=== PATIENT | female | born 1965 | race Caucasian/White ===

== ENCOUNTER → 2016-11-01 | Outpatient (CLI) | payer OTHER ==
[2016-11-01 09:51] LABS: BLOOD UREA NITROGEN 19 mg/dL (7-18)
[2016-11-01 10:04] LABS: ASPARTATE AMINO TRANSFERASE 10 U/L (15-37)
[2016-11-02 11:06] LABS: CREATININE URINE 67.2 mg/dL (Not Estab.)
== END | disposition home or self-care (01) ==
LOC: LAB 09:10
PROVIDERS: ATTEND Family Medicine
DX: E03.9 Hypothyroidism, unspecified (principal); E11.9 Type 2 diabetes mellitus without complications; E78.5 Hyperlipidemia, unspecified; N95.1 Menopausal and female climacteric states
CPT/HCPCS: 36415; 80053; 80061; 82043; 82570; 82670; 83001; 83002; 83036; 84436; 84443; 84481; 85025

== ENCOUNTER 2017-01-23 20:46 | Emergency (ER) | payer OTHER ==
[~2017-01-23] VITALS: Ht 162.6 cm; Wt 99.5 kg
[2017-01-23] MEDS ORDERED: ONDANSETRON 2MG/ML, 2ML IVPush ONE (21:30)
[2017-01-23] MEDS ORDERED: SODIUM CHLORIDE 0.9% 1,000ML IVBOLUS ONE (21:30)
[2017-01-23] MEDS ORDERED: ONDANSETRON 2MG/ML, 2ML ONE (21:40)
[2017-01-23 21:50] LABS: PH, VENOUS 7.402 pH (7.320-7.420)
[2017-01-23 21:53] LABS: HEMATOCRIT 39.8 % (34.6-47.8); HEMOGLOBIN 12.9 g/dL (11.7-16.4); WHITE BLOOD COUNT 6.1 x10^3/uL (3.4-10)
[2017-01-23 21:57] LABS: PATH.CAST-FLAG NOT PRESENT; SPERM-FLAG NOT PRESENT; SRC-FLAG NOT PRESENT; XTAL-FLAG NOT PRESENT; YLC-FLAG NOT PRESENT
[2017-01-23 22:05] LABS: ASPARTATE AMINO TRANSFERASE 9 U/L (15-37); BLOOD UREA NITROGEN 11 mg/dL (7-18)
[2017-01-23 22:12] LABS: IS PT STATUS REG ER OR PRE ER? YES
[2017-01-23 22:55] VITALS: BP 150/85
== END 2017-01-23 22:58 | disposition home or self-care (01) ==
LOC: ED 22:52
DX: E11.65 Type 2 diabetes mellitus with hyperglycemia (principal); L03.115 Cellulitis of right lower limb; L03.116 Cellulitis of left lower limb; I10 Essential (primary) hypertension; E78.00 Pure hypercholesterolemia, unspecified
CPT/HCPCS: 36415; 80053; 81001; 82010; 82803; 82962; 83690; 84484; 85025; 93005; 96361; 96374; 99285; J2405; J7030

== ENCOUNTER → 2017-01-23 | Outpatient (CLI) | payer OTHER | END | disposition home or self-care (01) | LOC: CFH 07:52 | PROVIDERS: ATTEND Orthopaedic Surgery Sports Medicine | DX: M71.22 Synovial cyst of popliteal space [Baker], left knee (principal); M25.462 Effusion, left knee; M25.762 Osteophyte, left knee; M94.262 Chondromalacia, left knee; M17.12 Unilateral primary osteoarthritis, left knee; M65.862 Other synovitis and tenosynovitis, left lower leg ==

== ENCOUNTER → 2017-01-26 | Outpatient (CLI) | payer OTHER ==
[2017-01-26 07:35] LABS: ASPARTATE AMINO TRANSFERASE 11 U/L (15-37); BLOOD UREA NITROGEN 16 mg/dL (7-18)
== END | disposition home or self-care (01) ==
LOC: LAB 07:08
PROVIDERS: ATTEND Family Medicine
DX: E11.9 Type 2 diabetes mellitus without complications (principal); E78.5 Hyperlipidemia, unspecified
CPT/HCPCS: 36415; 80053; 80061; 83036

== ENCOUNTER → 2017-02-02 | Outpatient (CLI) | payer OTHER | END | disposition home or self-care (01) | LOC: CFH 14:41 | PROVIDERS: ATTEND Family Medicine | DX: M79.89 Other specified soft tissue disorders (principal) ==

== ENCOUNTER → 2017-03-13 | Outpatient (CLI) | payer OTHER | END | disposition home or self-care (01) | LOC: CFH 15:44 | PROVIDERS: ATTEND Family Medicine | DX: Z12.31 Encounter for screening mammogram for malignant neoplasm of breast (principal) | CPT/HCPCS: 77063; G0202 ==

== ENCOUNTER 2017-05-26 20:42 | Emergency (ER) | payer OTHER ==
[~2017-05-26] VITALS: Ht 162.6 cm; Wt 97.9 kg
[2017-05-26 20:44] VITALS: BP 164/93
[2017-05-26] MEDS ORDERED: ACETAMINOPHEN 325 MG TABLET ONE (21:14)
[2017-05-26] MEDS ORDERED: ACETAMINOPHEN 325 MG TABLET PO ONE (21:30)
== END 2017-05-26 21:50 | disposition home or self-care (01) ==
LOC: ED 21:44
DX: S60.221A Contusion of right hand, initial encounter (principal); E11.9 Type 2 diabetes mellitus without complications; W01.0XXA Fall on same level from slipping, tripping and stumbling without subsequent striking against object, initial encounter; Y93.89 Activity, other specified; Y99.8 Other external cause status; Y92.009 Unspecified place in unspecified non-institutional (private) residence as the place of occurrence of the external cause
CPT/HCPCS: 99284

== ENCOUNTER → 2017-06-06 | Outpatient (CLI) | payer OTHER ==
[~2017-06-06] MED LIST: ATOR40TA78 PO; ESTR0.5T PO; EZET10TA18 PO; FENO145T32 PO; LEVO150T PO; METF500T9 PO
[2017-06-06 15:44] LABS: BASOPHILS # (AUTO) 0.05 x10^3/uL (0-0.1); BASOPHILS % (AUTO) 1 % (0-1); EOSINOPHILS # (AUTO) 0.09 x10^3/uL (0-0.4); EOSINOPHILS % (AUTO) 2 % (1-7); LYMPHOCYTES # (AUTO) 1.61 x10^3/uL (1-3.4); LYMPHOCYTES % (AUTO) 26 % (22-44); MD NO; MEAN CORPUSCULAR HEMOGLOBIN 29.6 pg (27.0-34.8); MEAN CORPUSCULAR HGB CONC 33.3 g/dL (32.4-35.8); MEAN CORPUSCULAR VOLUME 88.9 fL (80-100); MEAN PLATELET VOLUME 8.4 fL (7.4-10.4); MONOCYTES # (AUTO) 0.36 x10^3/uL (0.2-0.8); MONOCYTES % (AUTO) 6 % (2-9); NEUTROPHILS # (AUTO) 4.18 x10^3/uL (1.8-6.8); NEUTROPHILS % (AUTO) 66 % (42-75); PLATELET COUNT 361 x10^3/uL (130-400); RED BLOOD COUNT 4.69 x10^6/uL (3.82-5.3); RED CELL DISTRIBUTION WIDTH 13.7 % (9.6-15.2)
[2017-06-06 15:48] LABS: INTERNATIONAL NORMALIZED RATIO 0.94 (0.93-1.1); PROTHROMBIN TIME 9.8 Seconds (9.6-11.5)
[2017-06-06 15:50] LABS: ALBUMIN 4.3 g/dL (3.4-5.0); ANION GAP 8 mmol/L (5-15); CALCIUM 10.1 mg/dL (8.5-10.1); CHLORIDE 103 mmol/L (98-107)
[2017-06-06 15:54] LABS: ALANINE AMINOTRANSFERASE 27 U/L (12-78); ALKALINE PHOSPHATASE 50 U/L (45-117); BILIRUBIN,TOTAL 0.4 mg/dL (0.2-1.0); CREATININE 0.76 mg/dL (0.55-1.02); TOTAL PROTEIN 7.9 g/dL (6.4-8.2)
[2017-06-06 16:14] LABS: HEMOGLOBIN A1C 8.1 % (4.2-6.3)
== END | disposition home or self-care (01) ==
LOC: STAR 12:26
PROVIDERS: ATTEND Orthopaedic Surgery
DX: Z01.818 Encounter for other preprocedural examination (principal); M17.12 Unilateral primary osteoarthritis, left knee; E11.9 Type 2 diabetes mellitus without complications; R79.1 Abnormal coagulation profile
CPT/HCPCS: 36415; 80053; 83036; 85025; 85610; 85730; 86703; 87081; 87899; 93005; G0435

== ENCOUNTER 2017-06-18 05:18 | Inpatient (IN) | payer OTHER ==
[~2017-06-18] VITALS: Ht 162.6 cm; Wt 97.1 kg
[2017-06-18] MEDS ORDERED: VANCOMYCIN PER PHARMACY MC STA (06:12)
[2017-06-18] MEDS ORDERED: LACTATED RINGERS 1,000 ML IV SCH (06:14)
[2017-06-18] MEDS ORDERED: ACETAMINOPHEN 500 MG TABLET ONE (06:21)
[2017-06-18] MEDS ORDERED: OxyconTIN ER 10 MG TAB.ER ONE (06:21)
[2017-06-18] MEDS ORDERED: GABAPENTIN 300 MG CAPSULE ONE (06:22)
[2017-06-18] MEDS ORDERED: OxyconTIN ER 10 MG TAB.ER PO ONE (06:30)
[2017-06-18] MEDS ORDERED: GABAPENTIN 300 MG CAPSULE PO ONE (06:30)
[2017-06-18] MEDS ORDERED: VANCOMYCIN 1,500 MG in SODIUM CHLORIDE 0.9% 250 ML IV ONE (06:30)
[2017-06-18] MEDS ORDERED: ACETAMINOPHEN 500 MG TABLET PO ONE (06:30)
[2017-06-18] MEDS ORDERED: ROPIvacaine/PF 0.2%, 20 ML ONE (06:43)
[2017-06-18] MEDS ORDERED: KETOROLAC 60 MG/2 ML ONE (06:43)
[2017-06-18] MEDS ORDERED: VANCOMYCIN 1,000 MG ONE (06:43)
[2017-06-18] MEDS ORDERED: TRANEXAMIC ACID 100 MG/ML, 10ML ONE ×4 (06:43)
[2017-06-18] MEDS ORDERED: SODIUM CHLORIDE 0.9% 100 ML ONE (06:44)
[2017-06-18] MEDS ORDERED: EPINEPHRINE 1 MG/ML, 1ML ONE (06:44)
[2017-06-18 06:46] VITALS: BP 129/78
[2017-06-18] MEDS ORDERED: ROCURONIUM 10 MG/ML,10ML ONE (07:01)
[2017-06-18] MEDS ORDERED: CEFAZOLIN 1,000 MG ONE ×2 (07:01)
[2017-06-18] MEDS ORDERED: HYDROmorphone 2 MG/ML, 1ML ONE (07:01)
[2017-06-18] MEDS ORDERED: PROPOFOL 10 MG/ML, 20ML ONE (07:01)
[2017-06-18] MEDS ORDERED: MIDAZOLAM 1 MG/ML, 2ML ONE (07:01)
[2017-06-18] MEDS ORDERED: FENTANYL PF 250 MCG/5ML ONE (07:01)
[2017-06-18] MEDS ORDERED: BUPIVACAINE/PF 0.5% ONE (07:02)
[2017-06-18] MEDS ORDERED: PROPOFOL 100 ML ONE (07:05)
[2017-06-18] MEDS ORDERED: SCOPOLAMINE PATCH, 1.5MG PATCH.TD72 TD ONE ×2 (07:13→07:30)
[2017-06-18] MEDS ORDERED: ONDANSETRON 2MG/ML, 2ML ONE (07:19)
[2017-06-18] MEDS ORDERED: ONDANSETRON 4 MG TABLET PO PRN (07:30)
[2017-06-18] MEDS ORDERED: SCOPOLAMINE PATCH, 1.5MG PATCH.TD72 TD PRN (07:30)
[2017-06-18] MEDS ORDERED: SENNA/DOCUSATE TABLET PO PRN (07:30)
[2017-06-18] MEDS ORDERED: MAGNESIUM HYDROXIDE 8%, 30ML UDC PO PRN (07:30)
[2017-06-18] MEDS ORDERED: ACETAMINOPHEN 650 MG/20.3 ML UDC PO PRN (07:30)
[2017-06-18] MEDS ORDERED: DEXTROSE 4 GM TAB.CHEW PO PRN (07:30)
[2017-06-18] MEDS ORDERED: TRANEXAMIC ACID 1,000 MG in SODIUM CHLORIDE 0.9% 100 ML IVPB ONE (07:30)
[2017-06-18] MEDS ORDERED: ONDANSETRON 2MG/ML, 2ML IV PRN (07:30)
[2017-06-18] MEDS ORDERED: DIPHENHYDRAMINE 50 MG CAPSULE PO PRN (07:30)
[2017-06-18] MEDS ORDERED: DEXTROSE 50%, 50ML SYRINGE IVPush PRN (07:30)
[2017-06-18] MEDS ORDERED: HYDROmorphone 1 MG/ML, 1ML IV PRN ×2 (07:30→08:00)
[2017-06-18] MEDS ORDERED: DIAZEPAM 5 MG TABLET PO PRN (07:30)
[2017-06-18] MEDS ORDERED: GLUCAGON 1 MG IM PRN (07:30)
[2017-06-18] MEDS ORDERED: ALUMINUM/MAG/SIMETHICONE 30 ML UDC PO PRN (07:30)
[2017-06-18] MEDS ORDERED: OXYcodone 5 MG/5 ML ORAL.SOL UDC PO PRN (08:00)
[2017-06-18] MEDS ORDERED: METOPROLOL 1 MG/ML, 5ML IV PRN (08:00)
[2017-06-18] MEDS ORDERED: LABETALOL 5MG/ML, 20ML IV PRN (08:00)
[2017-06-18] MEDS ORDERED: FENTANYL PF 100 MCG/2ML IV PRN (08:00)
[2017-06-18] MEDS ORDERED: ALBUTEROL SULFATE 2.5 MG/3 ML NPPB PRN (08:00)
[2017-06-18] MEDS ORDERED: ONDANSETRON 2MG/ML, 2ML IVPush PRN (08:00)
[2017-06-18] MEDS ORDERED: EPHEDRINE 50 MG/ML, 1ML IVPush PRN (08:00)
[2017-06-18] MEDS ORDERED: ACETAMINOPHEN 325 MG TABLET PO PRN ×2 (08:00→11:42)
[2017-06-18] MEDS ORDERED: hydrALAzine 20 MG/ML, 1ML IV PRN (08:00)
[2017-06-18] MEDS: SODIUM CHLORIDE FLUSH 10ML SYR IVF SCH ×2 (09:00→21:22)
[2017-06-18] MEDS: DOCUSATE 100 MG CAPSULE PO SCH ×2 (09:00→21:21)
[2017-06-18] MEDS ORDERED: OXYcodone 5 MG/5 ML ORAL.SOL UDC ONE (10:17)
[2017-06-18] MEDS ORDERED: ACETAMINOPHEN 650 MG/20.3 ML UDC ONE (10:17)
[2017-06-18] MEDS: INSULIN REGULAR 100 UNITS/ML, 3ML VIAL SQ-INSULIN SCH ×3 (11:00→21:42)
[2017-06-18] MEDS: NS + 20MEQ KCL 1,000 ML IV SCH ×2 (12:57→21:00)
[2017-06-18] MEDS: TAMSULOSIN 0.4 MG CAP.ER.24H PO SCH (12:57)
[2017-06-18 14:38] VITALS: BP 111/65
[2017-06-18] MEDS: OXYcodone IR 5MG TABLET PO PRN ×2 (15:46→21:21)
[2017-06-18] MEDS: CEFAZOLIN PMX 1GM/50ML 50 ML IVPB SCH ×2 (15:46→23:25)
[2017-06-18] MEDS: ASPIRIN 81 MG TABLET EC PO SCH (17:33)
[2017-06-18] MEDS: metFORMIN 500 MG TABLET PO SCH (17:33)
[2017-06-18 19:57] VITALS: BP 113/55
[2017-06-18] MEDS ORDERED: ATORVASTATIN 40 MG TABLET PO SCH (21:00)
[2017-06-18 23:40] VITALS: BP 103/54
[2017-06-19] MEDS: OXYcodone IR 5MG TABLET PO PRN ×3 (02:56→12:24)
[2017-06-19 02:57] VITALS: BP 109/65
[2017-06-19] MEDS: ASPIRIN 81 MG TABLET EC PO SCH (05:48)
[2017-06-19] MEDS ORDERED: DEXAMETHASONE 4 MG/ML, 1ML IVPush SCH (06:00)
[2017-06-19] MEDS ORDERED: LEVOTHYROXINE 150 MCG TABLET PO SCH (06:00)
[2017-06-19 06:49] VITALS: BP 104/57
[2017-06-19] MEDS: NS + 20MEQ KCL 1,000 ML IV SCH (07:22)
[2017-06-19] MEDS: INSULIN REGULAR 100 UNITS/ML, 3ML VIAL SQ-INSULIN SCH ×2 (07:22→11:25)
[2017-06-19] MEDS ORDERED: KETOROLAC 30 MG/1 ML IV SCH (07:30)
[2017-06-19] MEDS: metFORMIN 500 MG TABLET PO SCH (07:31)
[2017-06-19] MEDS: SODIUM CHLORIDE FLUSH 10ML SYR IVF SCH (07:31)
[2017-06-19] MEDS: DOCUSATE 100 MG CAPSULE PO SCH (07:31)
[2017-06-19] MEDS: TAMSULOSIN 0.4 MG CAP.ER.24H PO SCH (07:32)
[2017-06-19] MEDS ORDERED: FENOFIBRATE 145 MG TABLET PO SCH (09:00)
[2017-06-19] MEDS ORDERED: EZETIMIBE 10 MG TABLET PO SCH (09:00)
[2017-06-19] MEDS ORDERED: OXYC5CAP2 PO (10:46)
[2017-06-19] MEDS ORDERED: ONDA4TAB7 PO (10:47)
[2017-06-19] MEDS ORDERED: ASPI-496 PO (10:47)
[2017-06-19] MEDS ORDERED: DOCU-131 PO (10:48)
[2017-06-19] MEDS ORDERED: CELE200C PO (10:48)
[2017-06-19] MEDS ORDERED: DIAZ5TAB PO (10:49)
[2017-06-19 12:28] VITALS: BP 117/64
[2017-06-19] MEDS ORDERED: TRAM50TA2 PO (13:20)
== END 2017-06-19 13:47 | disposition home or self-care (01) | DRG 470 ==
LOC: ORIP 05:18 → 4NOR 11:41 → DCLOUNGE 06-19 13:13
PROVIDERS: ADMIT Orthopaedic Surgery; ATTEND Orthopaedic Surgery
PROC: 0SRD0J9 Replacement of Left Knee Joint with Synthetic Substitute, Cemented, Open Approach (ICD-10-PCS; principal; 2017-06-18 07:30)
DX: M17.12 Unilateral primary osteoarthritis, left knee (principal); E11.9 Type 2 diabetes mellitus without complications; Z88.0 Allergy status to penicillin
CPT/HCPCS: 36415; 82962; 85014; 85018; C1713; J0171; J0690; J1100; J1170; J1815; J1885; J2250; J2405; J2704; J2795; J3010; J3370; J3480; J3490; C1776; J7050; J7120